=== PATIENT | female | born 1970 | race Caucasian/White ===

== ENCOUNTER 2018-09-26 21:33 | Emergency (ER) | payer MEDICAID ==
[~2018-09-26] VITALS: Ht 157.5 cm; Wt 53.0 kg
[2018-09-26] MEDS ORDERED: normal saline 1000ML IV soln IVB ONE (21:45)
--- NOTE | 2018-09-26 22:00 | NUR ---
PT BIB [facility] FOR [facility] CLEARANCE, +ETOH, +N/V INTO EMESIS BAG, PT IS SITTING UP ON GURNEY
--- NOTE | 2018-09-26 22:50 | NUR ---
PT UP TO BEDSIDE COMMODE WITHOUT ASSIST, SLIGHTLY UNSTEADY ON HER FEET
--- NOTE | 2018-09-26 23:07 | NUR ---
PT UNABLE TO URINATE, IN AND OUT CATH DONE WITH STERILE TECHNIQUE, 400ML OF CLEAR YELLOW URINE OUT, SAMPLE SENT TO LAB
--- NOTE | 2018-09-26 23:10 | NUR ---
PT IS SLEEPING, RESP EVEN AND UNLABORED, LYING ON RT SIDE, NO N/V AT THIS TIME
[2018-09-26 23:21] LABS: ALANINE AMINOTRANSFERASE 40 U/L (12-78); ALBUMIN 3.8 G/DL (3.4-5.0); ALKALINE PHOSPHATASE 80 IU/L (46-116); ANION GAP 9 (8-16); ASPARTATE AMINO TRANSFERASE 24 U/L (10-37); BILIRUBIN,TOTAL 0.2 MG/DL (0.1-1.0); BLOOD UREA NITROGEN 11 MG/DL (7-18); BUN/CREATININE RATIO 17.7 (6.6-38.0); CALCIUM 8.1 MG/DL (8.5-10.1); CHLORIDE 112 MMOL/L (99-107); CREATININE 0.62 MG/DL (0.40-0.90); ETHANOL 0.296 GM/DL (0.0-0.010); GLUCOSE 108 MG/DL (70-104); POTASSIUM 3.7 MMOL/L (3.5-5.1); SODIUM 146 MMOL/L (135-145); TOTAL CARBON DIOXIDE 24.6 MMOL/L (24-32); TOTAL PROTEIN 7.6 G/DL (6.4-8.2); eGFR > 90 ML/MIN
[2018-09-26 23:24] LABS: CLARITY,URINE CLEAR (Clear); COLOR,URINE YELLOW (Yellow); GLUCOSE, URINE NEGATIVE (Neg); KETONES,URINE NEGATIVE (Neg); LEUKOCYTE ESTERASE ,URINE NEGATIVE (Neg); NITRITES, URINE NEGATIVE (Neg); OCCULT BLOOD,URINE SMALL (Neg); PROTEIN,URINE NEGATIVE (Neg); UROBILINOGEN,URINE 0.2 E.U/dL (0.2-1.0)
[2018-09-26 23:27] LABS: UA COLLECTION TYPE OTHER
[2018-09-26 23:31] LABS: URINE AMPHETAMINE SCREEN NEGATIVE (Neg); URINE BARBITUATE SCREEN NEGATIVE (Neg); URINE BENZODIAZEPINES SCREEN NEGATIVE (Neg); URINE CANNABINOID SCREEN NEGATIVE (Neg); URINE COCAINE SCREEN NEGATIVE (Neg); URINE METHADONE SCREEN NEGATIVE (Neg); URINE OPIATE SCREEN NEGATIVE (Neg); URINE PHENCYCLIDINE SCREEN NEGATIVE (Neg)
[2018-09-26 23:35] LABS: BACTERIA,URINE NONE SEEN /HPF (Neg); RBC,URINE 0-2 /HPF (0-2); SQUAMOUS EPITHELIAL CELL,UR FEW /LPF (FEW); WBC,URINE 0-4 /HPF (0-4)
[2018-09-26 23:57] VITALS: BP 132/80
== END 2018-09-26 23:59 ==
LOC: ER 21:33
DX: F10.129 Alcohol abuse with intoxication, unspecified (principal); Z88.5 Allergy status to narcotic agent
CPT/HCPCS: 36415; 80053; 80305; 80320; 81001; 96360; 99283; J7030

== ENCOUNTER 2020-01-16 15:07 | Emergency (ER) | payer MEDICAID ==
[~2020-01-16] VITALS: Ht 157.5 cm; Wt 51.0 kg
[2020-01-16 15:59] LABS: HEMOGLOBIN 13.1 g/dl (12.0-16.0); RED BLOOD COUNT 4.35 X10'6 (4.20-5.60); WHITE BLOOD COUNT 11.5 X10'3 (4.5-11.0)
[2020-01-16 16:00] LABS: BASOPHILS # (AUTO) 0.1 X10'3 (0-0.2); BASOPHILS % (AUTO) 1.1 % (0-1); EOSINOPHILS # (AUTO) 0.1 X10'3 (0-0.9); EOSINOPHILS % (AUTO) 0.8 % (0-6); LYMPHOCYTES # (AUTO) 1.9 X10'3 (1.1-4.8); LYMPHOCYTES % (AUTO) 16.5 % (21-51); MEAN CORPUSCULAR HEMOGLOBIN 30.2 PG (27.0-31.0); MEAN CORPUSCULAR HGB CONC 32.8 g/dL (33.0-36.5); MEAN PLATELET VOLUME 8.2 FL (7.4-10.4); MONOCYTES # (AUTO) 0.6 X10'3 (0-0.9); MONOCYTES % (AUTO) 4.8 % (2-12); NEUTROPHILS # (AUTO) 8.8 X10'3 (1.8-7.7); NEUTROPHILS % (AUTO) 76.8 % (42-75); PLATELET COUNT 325 X10'3 (140-440); RED CELL DISTRIBUTION WIDTH 13.3 % (11.5-14.5)
[2020-01-16 16:09] LABS: PARTIAL THROMBOPLASTIN TIME 27 SECONDS (22-32)
[2020-01-16 16:13] LABS: GLUCOSE 115 MG/DL (70-104); POTASSIUM 3.8 MMOL/L (3.5-5.1); SODIUM 140 MMOL/L (135-145)
[2020-01-16 16:14] LABS: ANION GAP 11 (8-16); BLOOD UREA NITROGEN 10 MG/DL (7-18); BUN/CREATININE RATIO 12.2 (6.6-38.0); CHLORIDE 105 MMOL/L (99-107); CREATININE 0.82 MG/DL (0.40-0.90); TOTAL CARBON DIOXIDE 24.3 MMOL/L (24-32)
[2020-01-16 16:15] LABS: BILIRUBIN,TOTAL 0.5 MG/DL (0.1-1.0); CALCIUM 8.9 MG/DL (8.5-10.1); TOTAL PROTEIN 7.8 G/DL (6.4-8.2); eGFR 74 ML/MIN
[2020-01-16 16:16] LABS: ALANINE AMINOTRANSFERASE 25 U/L (12-78); ALBUMIN/GLOBULIN RATIO 1.1 (1.1-1.5); ALKALINE PHOSPHATASE 87 IU/L (46-116); ASPARTATE AMINO TRANSFERASE 18 U/L (10-37)
[2020-01-16 16:17] LABS: TROPONIN I < 0.04 NG/ML (0.0-0.05)
[2020-01-16] MEDS ORDERED: iohexol 350MG/ML 100ml bottle IV ONE (16:37)
--- NOTE | 2020-01-16 17:10 | NUR ---
PATIENT TO MRI.
--- NOTE | 2020-01-16 17:57 | NUR ---
PATIENT BACK FROM MRI.
[2020-01-16] MEDS ORDERED: HYDROcodone/acetaminophen 5mg/325mg tablet PO ONE (18:10)
[2020-01-16] MEDS ORDERED: HYDR-3964 PO (18:27)
[2020-01-16] MEDS ORDERED: CYCL-1 PO (18:27)
[2020-01-16] MEDS ORDERED: GABA300C PO (18:27)
[2020-01-16 18:33] VITALS: BP 125/95
--- NOTE | 2020-01-16 19:17 | NUR ---
PT WAS RAPIDLY WALKING OUT THE DOOR AND I ASKED HER TO STOP SO I COULD REMOVE HER IVS. SHE WENT INTO ROOM 19 AND THEY WERE REMOVED WITH INTACT CANNULAS AND 2X2 AND COBAN TO EACH SITE. SHE SAID THAT 'WHEN I'M DONE, I'M DONE. I JUST WANT TO GO.' PT AOX4, STEADY GAIT AND WEARING AN ASPEN COLLAR. SHE SAID SHE HAD THAT FOR A MONTH NOW.
--- NOTE | 2020-01-16 19:55 | NUR ---
Dr pena and Dr Nichols notified pt AMA
== END 2020-01-16 19:59 | disposition left against medical advice (07) ==
LOC: ER 15:07
DX: I63.9 Cerebral infarction, unspecified (principal); Z88.6 Allergy status to analgesic agent; Z79.899 Other long term (current) drug therapy
CPT/HCPCS: 36415; 70450; 70496; 70498; 70544; 70551; 71045; 72141; 80053; 82948; 84484; 85025; 85610; 85730; 93005; 99285; Q9967

== ENCOUNTER 2025-03-24 00:06 | Emergency (ER) | payer MEDICAID ==
[~2025-03-24] VITALS: Ht 157.5 cm; Wt 72.0 kg
[~2025-03-24 00:06] MED LIST: CYCL-1 PO; GABA300C PO; HYDR-3964 PO
--- NOTE | 2025-03-24 01:18 | RADIOLOGY REPORT ---
CLINICAL INDICATION: fall LEFT TECHNIQUE: DI KNEE, COMP 4 VW MIN Comparison: None FINDINGS/IMPRESSION: : There is no evidence of acute fracture or dislocation. Soft tissues are unremarkable.
--- NOTE | 2025-03-24 04:14 | Physician Documentation ---
History of Present Illness ~ Chief Complaint: Knee Pain Stated Complaint: FALL Time Seen by MD: 04:13 OK to notify your PCP?: Yes Primary Medical Doctor: plancard Source: patient, RN/, RN notes reviewed, old records Mode of Arrival: POV Exam Limitations: no limitations HPI This patient is a 55 y/o female who presents to ED with chief complaint of left knee pain. Patient reports tonight that she was walking and tripped, causing her to fall onto her left knee. Since then, patient reports that she has had severe pain in her left knee, and that it feels as though her kneecap is slipping out of place. Patient states she is unable to bear any weight on her left leg due to the pain. She did take some Tylenol here in ED which she states helped improve her pain. When asked why she fell, patient states that because of her MS she falls frequently. Patient denies any associated symptoms at this time. Patient denies any alleviating or exacerbating factors. Tetanus witin 5 years: Yes Medication Reconciliation Allergies: Coded Allergies: ibuprofen (Verified Allergy, Unknown, 09/26/18) Scheduled Cyclobenzaprine* (Cyclobenzaprine*), 1 TAB PO BID, (Reported) Gabapentin (Neurontin), 1 CAP PO TID, (Reported) Hydrocodone Bit/Acetaminophen (Hydrocodon-Acetaminophen 5-325), 1 EACH PO HS, (Reported) Past Medical History Past Medical History: No Pertinent History Past Surgical History: other Smoking Status: Never smoker Alcohol Use: None Drug Use: none Lives with: Family Lives In: Home Review of Systems All Other Systems at this time: Reviewed and Negative Physical Exam Vital Signs: RN Vital Signs have been reviewed: Yes, Temperature: 98.5, Heart Rate: 84, Respiratory Rate: 16, BP: 118/67, Pulse Oximetry: 98, Weight: 72.000 Oxygen Flow Rate: 0 Physical Exam General: The patient is well developed, well nourished, nontoxic appearing and is in no acute distress. Skin: [place], warm and dry with no rashes. HEENT: Head was normocephalic and atraumatic. Eyes - pupils equal, round, reactive to light and accommodation. Extraocular movements were intact. Conjunctivae were nonicteric. The mouth and oropharynx were clear with moist mucous membranes. There were no pharyngeal exudates or erythema. Neck: Supple and nontender. There was no jugular venous distention, lymphadenopathy, thyromegaly or masses. Chest: Clear to auscultation bilaterally without wheezes, rales or rhonchi. No accessory muscle use. No dullness to percussion. Heart: Rate regular and rhythmic. S1, S2. No murmurs. Palpation of the chest wall was normal. No rubs or thrills. Abdomen: Soft, nontender and nondistended. Positive bowel sounds. No guarding or rebound. No hepatosplenomegaly or palpable masses. Extremities: LLE: No anterior or posterior laxity. There is some medial laxity. Tenderness to palpation surrounding the patella. Otherwise no cyanosis, clubbing or edema. The patient moves all extremities. Pulses were equal and symmetric. Neurologic: Cranial nerves II-XII were intact. Sensation was intact to light touch throughout. Motor strength was 5/5 in all four extremities. Deep tendon reflexes were intact in both upper and lower extremities. Psychologic: The patient was oriented to person, place and time. The patient demonstrated appropriate judgement and insight. Procedures Splinting Pre-Made Type: knee immobilizer Pre-Proc Neuro Vasc Exam: normal Post-Proc Neuro Vasc Exam: normal Splint Placed By: art director Tolerated Procedure Well?: yes, no complications Progress Results/Orders Reviewed/noted all lab results: Yes Results/Orders Orders - WOO MORROW MD Knee, Complete (03/24/25 00:58) Ct Lower Extremity (03/24/25 04:30) Ortho Orders (03/24/25 04:44) Completed Orders - WOO MORROW MD Knee, Complete (03/24/25 00:58) Acetaminophen 325mg Tablet (Tylenol Tabl (03/24/25 03:45) Ct Lower Extremity (03/24/25 04:30) Medications Received in ER Medications (Trade) Dose Ordered Sig/Kris Route PRN Reason Start Time Stop Time Status Last Admin Dose Admin (Tylenol tablet) 650 mg ONCE ONCE PO 03/24/25 03:45 03/24/25 03:46 DC 03/24/25 03:48 650 MG Vital Signs 03/24/25 03/24/25 00:12 05:54 Temp 98.5 98.6 Pulse 84 80 Resp 16 18 B/P (MAP) 118/67 116/66 Pulse Ox 98 99 O2 Flow Rate 0 Re-Evaluation Re-Evaluation : Re-Evaluation: Improved Progress Patient was seen and examined. Patient is given reassurance. Patient was complaining of significant left-sided knee pain. She states her leg is unstable. There was a negative anterior posterior drawer sign. There was a click during exam where she complained of some pain possible subluxation of the patella. CT scan was obtained did not show any significant abnormalities. Patient received a knee immobilizer and crutches. Patient was given Tylenol for pain. Patient was then discharged home to follow up with Orthopedic surgery. EKG/XRAY/CT/US/VASC/MRI Bone/Soft Tissue X-Ray (Ext.) : Interpreted By: both Additional Comment Patient: MALCOLM WINSTON Medical Record: [id number] [facility] : 1970, Age: 55 Sex: Female Location: ER Patient Status: [facility] ER Service Date/Time: 03/24/2557 Ordering Physician: WOO MORROW MD Exam: KNEE, COMP 4 VW MIN CLINICAL INDICATION: fall LEFT TECHNIQUE: DI KNEE, COMP 4 VW MIN Comparison: None FINDINGS/IMPRESSION: : There is no evidence of acute fracture or dislocation. Soft tissues are unremarkable. Electronically Signed by:ARPIT KWAN MD Date & Time: 03/24/25114 Dictated by: ARPIT KWAN MD Dictation date and time: 03/24/25114 Primary Care Provider: NO PRIMARY CARE PROVIDER cc: WOO MORROW MD ~ CT : Interpreted By: radiologist CT: lower extremity With Contrast?: No Impression [facility] [address], [facility] [id number] CAT SCAN Patient: MALCOLM WINSTON Medical Record: [id number] [facility] : 1970, Age: 55 Sex: Female Location: ER Patient Status: [facility] ER Service Date/Time: 03/24/25429 Ordering Physician: WOO MORROW MD Exam: CT LOWER EXTREMITY CLINICAL INDICATION: Left knee laxity, trauma, fall TECHNIQUE: Noncontrast CT of the left knee was performed. Sagittal and coronal reformatted images are provided. COMPARISON: Radiographs of the left knee performed same date. CT Dose: CTDI volume is 16.8 mGy. Dose-length product is 537.5 mGy*cm FINDINGS: No fracture or dislocation. Mild medial compartment joint space narrowing. Alignment is anatomic. Soft tissues are unremarkable. No large joint effusion. IMPRESSION: 1. No acute fracture or dislocation. If there is concern for internal derangement, MRI of the left knee without contrast is recommended. All CT scans at this medical facility are performed using dose modulation techniques as appropriate to a performed exam including the following: Automated exposure control was utilized; adjustment of the MA and/or KV according to patient size; and use of iterative reconstruction technique. Electronically Signed by:ELIZA WHITLEY MD Date & Time: 03/24/25505 Dictated by: ELIZA WHITLEY MD Dictation date and time: 03/24/25505 Primary Care Provider: NO PRIMARY CARE PROVIDER cc: WOO MORROW MD ~ Medical Decision Making Additional info obtained from: old records Knee Diff Dx:Considerations: Include: Abrasion, Arthritis, Contusion, DJD, Fracture-femur, Fracture-fibula, Fracture-patella, Fracture-tibia, Gout, Hematoma, Laceration, Meniscus injury, Neurovascular injury, Open fracture, Rheumatoid arthritis, Septic, Sprain, Sprain-MCL, Sprain-LCL, Sprain-ACL, Sprain-PCL, Other Departure Time of Disposition: 05:13 Disposition: 01 HOME / SELF CARE / HOMELESS Impression: Primary Impression: Knee pain Qualified Codes: M25.562 - Pain in left knee Condition: Stable Discharge Instructions: Acute Knee Pain, Adult Additional Instructions: Follow up with orthopedist for further evaluation. Referrals: NO PRIMARY CARE PROVIDER (PCP) HOWARD REESE Jr., MD Education Educated: Patient Educated regarding: diagnosis, treatment, need for follow up Signature Scribe Signature: Scribed for Woo Morrow MD by Kika Gamez 03/24/25 04:26 Attestation: The note accurately reflects work and decisions made by me.Woo Morrow MD 03/24/25 04:14 WOO MORROW MD Mar 24, 2025 04:14
--- NOTE | 2025-03-24 05:08 | RADIOLOGY REPORT ---
CLINICAL INDICATION: Left knee laxity, trauma, fall TECHNIQUE: Noncontrast CT of the left knee was performed. Sagittal and coronal reformatted images are provided. COMPARISON: Radiographs of the left knee performed same date. CT Dose: CTDI volume is 16.8 mGy. Dose-length product is 537.5 mGy*cm FINDINGS: No fracture or dislocation. Mild medial compartment joint space narrowing. Alignment is an atomic. Soft tissues are unremarkable. No large joint effusion. IMPRESSION: 1. No acute fracture or dislocation. If there is concern for internal derangement, MRI of the left k nee without contrast is recommended. All CT scans at this medical facility are performed using dose modulation techniques as appropriate t o a performed exam including the following: Automated exposure control was utilized; adjustment of th e MA and/or KV according to patient size; and use of iterative reconstruction technique.
[2025-03-24 05:54] VITALS: BP 116/66; PULSE 80; RESP 18; TEMP 98.6; O2SAT 99
== END 2025-03-24 05:55 | disposition home or self-care (01) ==
LOC: ER 00:07
DX: M25.562 Pain in left knee (principal); Z88.6 Allergy status to analgesic agent; Z79.899 Other long term (current) drug therapy; W01.0XXA Fall on same level from slipping, tripping and stumbling without subsequent striking against object, initial encounter; Y93.01 Activity, walking, marching and hiking; Y92.89 Other specified places as the place of occurrence of the external cause; Y99.8 Other external cause status
CPT/HCPCS: 29505; 73564; 73700; 99284; A6449